=== PATIENT | male | born 2000 | race African-American/Black ===

== ENCOUNTER 2025-01-18 13:11 | Emergency (ER) | payer BC, SELFPAY ==
[2025-01-18 13:17] VITALS: BP 134/85; PULSE 87; RESP 20; TEMP 37.4; O2SAT 99
--- OUTSIDE RECORDS SUMMARY | 2025-01-18 13:17 | XMS_ITS | Clinical Summary ---
Author Organization [facility] Address [address] [place] [address] Phone Care Team Providers Care Database Analyst Name Role Phone Provider, None Primary Care Provider Unavailabl e Allergies No known active allergies Medications naproxen (NAPROSYN) 500 MG Tablet Take 1 Tablet by mouth 2 times daily as needed for Moderate or more severe pain. 20 Tablet 02/15/2024 Active traMADol (ULTRAM) 50 MG TabletIndicatio ns:Pain Take 1 Tablet by mouth every 8 hours as needed for Moderate or more severe pain. Indications: Pain 12 Tablet 02/15/2024 Active Social History Tobacco Use Types Packs/Day Years Used Date Smoking Tobacco: Never Assessed Sex and Gender Information Value Date Recorded Sex Assigned at Not on file Legal Sex Male 9:32 AM CDT Gender Identity Not on file Sexual Orientation Not on file Last Filed Vital Signs Vital Sign Reading Time Taken Comments Blood Pressure 125/73 02/15/2024 11:30 AM CDT Pulse 80 02/15/2024 11:30 AM CDT Temperature 37.4 C (99.3 F) 02/15/2024 9:41 AM CDT Respiratory Rate 16 02/15/2024 11:30 AM CDT Oxygen Saturation 98% 02/15/2024 11:30 AM CDT Inhaled Oxygen Concentration - - Weight 99.8 kg (220 lb) 02/15/2024 9:41 AM CDT Height 180.3 cm (5' 11) 02/15/2024 9:41 AM CDT Body Mass Index 30.68 02/15/2024 9:41 AM CDT Plan of Treatment Health Maintenance Due Date Last Done Comments Hepatitis C Virus (HCV) Screening 1998 Influenza Immunization (#1) 12/16/20242 12/2014, 01/21/2013 SARS-COV-2 Immunization ( - 2024- season) 2024 Respiratory Syncytial Virus (RSV) Immunization (Adult) (1 - 1-dose 75+ series) 2073 Hepatitis B Immunization Completed 999, 1998, 1998 Human Papillomavirus (HPV) Immunization Completed 11/20/2013, 12/27/2012, 01/19/2012 TdaP Immunization Completed 01/13/2015, 03/17/2010 Meningococcal Immunization (ACWY) Completed 12/16/2015, 03/17/2010 Pneumococcal Immunization Combined Aged Out No longer eligible b ased on patient's age to complete this topic Rotavirus Immunization Aged Out No lo nger eligible based on patient's age to complete this topic Care Teams Database Analyst Relationship Specialty Start Date End Date Provider, None [place] PCP - General 02/15/24
--- OUTSIDE RECORDS SUMMARY | 2025-01-18 13:17 | XMS_ITS | Clinical Summary ---
Author Organization [facility] Address [address] [place] [address] Care Team Providers Care Sociology Faculty Member Name Role Phone No, Physician Primary Care Provider [phone] Allergies No known active allergies Medications amoxicillin-clav ulanate (AUGMENTIN) 875-125 mg per tablet Take 1 tablet by mouth every 12 (twelve) hours 14 tablet 07/22/2024 Active loratadine (CLARITIN) 10 mg tablet Take 1 tablet (10 mg total) by mouth daily 20 tablet 07/22/2024 Active ibuprofen (ADVIL,MOTRIN) 600 mg tablet Take 1 tablet (600 mg total) by mouth every 6 (six) hours as needed for pain for up to 20 doses 20 tablet 07/22/2024 Active Social History Tobacco Use Types Packs/Day Years Used Date Smoking Tobacco: Former Cigarettes Smokeless Tobacco: Never Tobacco Cessation:Counseling Given: Not Answered Alcohol Use Standard Drinks/Week Comments Not Currently 0 (1 standard drink = 0.6 oz pur e alcohol) Personal Safety Answer Date Recorded Have you ever been in or are you currently in a harmful physical or emotional relationship or is someone making you feel afraid or unsafe? 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 Gender Identity Not on file Sexual Orientation Not on file Obstetrics History Last Filed Vital Signs Vital Sign Reading Time Taken Comments Blood Pressure 115/77 07/22/2024 9:30 AM CDT Pulse 77 07/22/2024 9:30 AM CDT Temperature 36.9 C (98.5 F) 07/22/2024 6:35 AM CDT Respiratory Rate 18 07/22/2024 9:30 AM CDT Oxygen Saturation 98% 07/22/2024 9:30 AM CDT Inhaled Oxygen Concentration - - Weight 99.8 kg (220 lb) 07/22/2024 6:35 AM CDT Height 177.8 cm (5' 10) 07/22/2024 6:35 AM CDT Body Mass Index 31.57 07/22/2024 6:35 AM CDT Plan of Treatment Health Maintenance Due Date Last Done Comments Depression Screening 1998 Hepatitis C Screening 1998 DTaP/Tdap/Td Vaccine (1 - Tdap) 2009 Varicella Vaccines (1 of 2 - 13+ 2-dose series) 06/16/2011 HPV Vaccines (1 - Male 3-dos e series) 2013 Hepatitis B Screening 2016 Regular Well Visit/Exam 18-64 2016 Influenza Vaccine (#1) 2024 Pneumococcal vaccine <65 Aged Out No longer eligible based on patient's age to complete this topic Insurance [place] [place] [address] PLAN Care Teams Sociology Faculty Member Relationship Specialty Start Date End Date No, Physician PCP - General 08/16/21
--- NOTE | 2025-01-18 13:40 | ED.ABDPAIN ---
HPI - Abdominal Pain General Chief Complaint: Abdominal Pain Stated Complaint: lower right abdo pain Time Seen by Provider: 01/18/25 13:25 Source: patient and RN notes reviewed Mode of arrival: ambulatory Limitations: no limitations History of Present Illness HPI narrative: 24-year-old male presents Express Care complaining of right lower abdominal pain that started this morning. Patient said also 2 days ago he had a couple episodes of emesis but no abdominal pain. Patient said he has not vomited for 2 days now. Patient reports some nausea this morning along with right lower abdominal pain. Patient says he has not a bowel movement the last 3 days. Patient denies any diarrhea. She denies any fevers, body aches, chills, upper respiratory symptoms, cough, chest pain, difficulty breathing, or any other symptoms. Patient has not tried any [id number] to help symptoms. Patient denies any abdominal surgeries. Related Data Home Medications ?Medication ?Instructions ?Recorded ?Confirmed ?Last Taken ?Type No Home Medications 01/18/25 Unknown History Allergies Allergy/AdvReac Type Severity Reaction Status Date / Time No Known Allergies Allergy Verified 01/18/25 13:22 Review of Systems Review of Systems: CONSTITUTIONAL: Denies fever, chills, or sweats. EYES: Denies visual changes, redness, or discharge. ENT: Denies rhinorrhea, congestion, sore throat, or otalgia. CARDIOVASCULAR: Denies chest pain, palpitations, or edema. RESPIRATORY: Denies cough or dyspnea. GASTROINTESTINAL: Denies vomiting, or diarrhea. Positive for abdominal pain and nausea. GENITOURINARY: Denies dysuria or hematuria. SKIN: Denies rash or itching. MUSCULOSKELETAL: Denies back pain, joint pain, or myalgia. NEUROLOGIC: Denies headache, numbness, or weakness. PSYCHIATRIC: Denies anxiety or depression. All other systems reviewed are negative, except as documented in HPI. PMFSH Comments At the time of my signature, I reviewed and agree with the nursing past medical, surgical, social, and family history. There is no relevant family history pertinent to the patient complaint. Exam Narrative: GENERAL: This is a well-nourished, well-developed adult, in no apparent distress. They are non ill-appearing, nontoxic appearing. HEAD: normocephalic, atraumatic. EYES: Sclera clear/white. Conjunctiva normal. Vision is grossly intact. Extraocular movements intact EARS: External ears normal,Hearing grossly intact. NOSE: External nose normal THROAT: Mucous membranes moist, NECK: Neck supple, CARDIOVASCULAR: Regular rate and rhythm without murmurs, gallops, or rubs. RESPIRATORY: Clear to auscultation. Breath sounds equal bilaterally. No wheezes, rales, or rhonchi. GASTROINTESTINAL: Abdomen soft, right lower quadrant tenderness to palpation, nondistended. Bowel sounds are active. No hepato-splenomegaly, or palpable masses. No guarding or rigidity. No rebound tenderness. Positive rousving sign and psoas sign. Negative obtruator sign. SKIN: warm, Dry, intact with no suspicious lesions or rash, good texture and turgor. NEURO: awake, alert, and oriented to person, place and time. There were no obvious focal neurologic abnormalities. EXTREMITIES: No joint tenderness, effusion, or edema noted. Course Course Emergency Course: Portions of this record may have been created with voice recognition software Level of Care: Express Care Visit Vital Signs Vital signs: Vital Signs Temperature 99.3 F 01/18/25 13:17 Pulse Rate 87 01/18/25 13:17 Respiratory Rate 20 01/18/25 13:17 Blood Pressure 134/85 01/18/25 13:17 Pulse Oximetry 99 01/18/25 13:17 Oxygen Delivery Room Air 01/18/25 13:17 Temperature 99.3 F 01/18/25 13:17 Pulse Rate 87 01/18/25 13:17 Respiratory Rate 20 01/18/25 13:17 Blood Pressure 134/85 01/18/25 13:17 Pulse Oximetry 99 01/18/25 13:17 Oxygen Delivery Room Air 01/18/25 13:17 Reviewed Transfer Transfered to: [facility] Transportation: Other (Private vehicle) Transfer rationale: Right lower quadrant pain, patient requires higher level care, rule out appendicitis or any other other acute abdominal conditions. Accepting physician: Dr. Jimenes [facility] - Abdominal Pain [facility] Narrative Medical decision making narrative: Patient's right lower abdominal tenderness, positive psoas sign and rousving sign. Patient afebrile however back slightly elevated temperature from baseline. Cannot rule out appendicitis based off these findings. Given patient's symptoms, it is recommend the patient seek a higher level care and proceed immediately to the emergency department. The patient is agreeable to go to [facility] ER for further evaluation management for possible lab work advanced imaging. Call over to [facility] ER spoke to Keyana Dias who is aware this patient and Dr. Jimenes accepted this patient for transfer. Patient to go to hospital via private vehicle by a friend. Patient advised remain NPO proceed immediately to the ER. Discussed physical exam findings. Advised supportive measures and signs/symptoms to go to the ER. Pt is appropriate for outpt treatment and f/u. Patient hemodynamically stable to take himself to the hospital via private vehicle. Differential Diagnosis Differential diagnosis: Likely abdominal pain, acute appendicitis and constipation Critical Care Time Critical Care Time Critical Care Time: No Discharge Plan Discharge Clinical Impression: Abdominal pain, acute, right lower quadrant Patient Disposition: Acute Care Hospital Condition: Stable Patient Language: Yakut Prescriptions: No Action No Home Medications Follow-up/Referrals: PHYSICIAN,CUSTOMS COMPLIANCE MANAGER [Primary Care Provider, Internal Medicine] Time of Disposition: 13:20
== END 2025-01-18 13:41 | disposition short-term general hospital (02) ==
LOC: EXPBETH 13:15
DX: R10.31 Right lower quadrant pain (principal)
CPT/HCPCS: 99202; G0463